=== PATIENT | male | born 1955 | race Two or more races ===

== ENCOUNTER 2019-02-05 21:21 | Inpatient (IN) | payer OTHER ==
[~2019-02-05] VITALS: Ht 152.4 cm; Wt 58.1 kg
[2019-02-05] MEDS ORDERED: HYDROCODONE/APAP 5/325MG 1 EACH TABLET PO PRN (23:00)
[2019-02-05] MEDS ORDERED: ONDANSETRON HCL/PF 4 MG/2 ML VIAL IVP PRN (23:00)
[2019-02-05] MEDS ORDERED: ALBUTEROL FS 2.5 MG/0.5 ML VIAL.NEB NEB PRN (23:00)
[2019-02-05] MEDS ORDERED: Z GUARD REMEDY 2 OZ OINT TP PRN (23:00)
[2019-02-05] MEDS ORDERED: MAGNESIUM HYDROXIDE 30 ML UDC PO PRN (23:00)
[2019-02-05] MEDS ORDERED: ACETAMINOPHEN 325 MG TABLET PO PRN (23:00)
[2019-02-05] MEDS ORDERED: ZOLPIDEM TARTRATE 5 MG TABLET PO PRN (23:00)
[2019-02-05] MEDS ORDERED: IPRATROPIUM NEB FS 0.5 MG/2.5 ML AMPUL.NEB NEB PRN (23:00)
--- NOTE | 2019-02-06 00:10 | NUR ---
MANINDER/RN NOTES 64 YEARS OLD MALE PT ADMITTED TO THE [facility]ER UNIT WITH THE DX OF COPD EXACERBATION, SOB. PATIENT IN NO ACUTE DISTRESS, RESPIRATION EVEN AND UNLABORED , NO SOB NOTED. PATIENT ON O2 @ 3LPM VIA N/C SATURATING 97% AT THIS TIME. PATIENT ALERT AND ORIENTED X4, DENIES ANY PAIN OR DISCOMFORT AT THIS TIME. SKIN ASSESSMENT DONE, PATIENT PLACED ON TELE MONITORING WITH SR 67. SAFETY MAINTAINED, BED AT THE LOWEST POSITION, LOCKED WITH X2 SIDE RAILS UP. CALL LIGHT WITHIN REACH. WILL CONTINUE TO MONITOR PATIENT CONDITION PER PLAN OF CARE.
[2019-02-06 00:25] VITALS: BP 145/78
[2019-02-06] MEDS: methylPREDNISolone SOD SUCC 125 MG/2ML VIAL IV SCH ×4 (02:10→22:03)
[2019-02-06] MEDS: ENOXAPARIN SODIUM 40 MG/0.4 ML DISP.SYRIN SQ SCH ×2 (02:13→21:21)
[2019-02-06 04:00] VITALS: BP 138/68
[2019-02-06 06:14] LABS: HEMATOCRIT 45 % (39-51); LYMPHOCYTES # (AUTO) 0.4 /CMM (0.8-4.8); LYMPHOCYTES % (AUTO) 4.5 % (20.0-44.0); MEAN CORPUSCULAR HGB CONC 34 g/dl (31.0-36.0); MEAN CORPUSCULAR VOLUME 98 fL (80-96); MONOCYTES # (AUTO) 0.1 /CMM (0.1-1.30); NEUTROPHILS # (AUTO) 7.7 /CMM (1.8-8.9); NEUTROPHILS % (AUTO) 94.5 % (43.0-81.0); PLATELET COUNT (AUTO) 129 /CMM (150-450); RED BLOOD CELL COUNT(AUTO) 4.54 MIL/uL (4.5-6.0); WHITE BLOOD COUNT (AUTO) 8.1 K/uL (4.3-11.0)
[2019-02-06 06:34] LABS: CALCIUM, SERUM 8.5 mg/dL (8.5-10.1); CREATININE 0.7 mg/dL (0.6-1.3); MAGNESIUM 1.9 mg/dL (1.8-2.4); POTASSIUM 4.7 mmol/L (3.5-5.1)
--- NOTE | 2019-02-06 06:36 | NUR ---
MANINDER/RN NOTES PATIENT IN NO ACUTE DISTRESS, RESPIRATION EVEN AND UNLABORED , NO SOB NOTED. NO SIGNIFICANT CHANGE IN CONDITION NOTED IN THIS SHIFT, ALL DUE MEDS GIVEN ORDERED. DENIES ANY PAIN OR DISCOMFORT AT THIS TIME. PATIENT ON TELE MONITORING WITH SR 70. SAFETY MAINTAINED, BED AT THE LOWEST POSITION, LOCKED WITH X2 SIDE RAILS UP. CALL LIGHT WITHIN REACH. WILL ENDORSE TO AM SHIFT NURSE FOR MISAEL
--- NOTE | 2019-02-06 07:30 | NUR ---
MANINDER RN AM NOTES PATIENT IN BED, ALERT ORIENTED X 3, ON 3 LPM O2 VIA NASAL CANULA, SLIGHT SOB, NOT IN ANY DISTRESS, RESPIRATION UNLABORED, SINUS TACH HR 108 ON TELE MONITOR, DENIES PAIN OR DISCOMFORT, RT WRIST G 20 IV ACCESS, FLUSHES WELL, SITE CLEAR, CARDIAC DIET, O SKIN ISSUES, AMBULATES, STEADY GAIT. SAFETY MAINTAINED, BED AT THE LOWEST POSITION, LOCKED WITH X2 SIDE RAILS UP. CALL LIGHT WITHIN REACH. WILL CONTINUE TO MONITOR.
[2019-02-06 08:00] VITALS: BP_SYST 137; BP_SYST 148; BP_DIAS 70; BP_DIAS 72
--- NOTE | 2019-02-06 09:30 | NUR ---
MANINDER RN NOTES DUE MEDS GIVEN
[2019-02-06] MEDS ORDERED: LORAZEPAM INJ 2 MG/ML VIAL IV PRN (10:00)
[2019-02-06 10:26] LABS: ALBUMIN 3.4 g/dL (3.4-5.0); BILIRUBIN,DIRECT 0.1 mg/dL (0.0-0.2); BILIRUBIN,TOTAL 0.5 mg/dL (0.2-1.0); TOTAL PROTEIN, SERUM 8.2 g/dL (6.4-8.2)
[2019-02-06] MEDS: IPRATROPIUM NEB FS 0.5 MG/2.5 ML AMPUL.NEB NEB SCH ×3 (11:30→19:47)
[2019-02-06] MEDS: ALBUTEROL FS 2.5 MG/0.5 ML VIAL.NEB NEB SCH ×4 (11:30→23:49)
[2019-02-06] MEDS: CEFTRIAXONE 1 G in IV D5W 50 ML IV SCH (11:48)
[2019-02-06] MEDS: AZITHROMYCIN 500 MG in IV D5W 250 ML IV SCH (11:48)
[2019-02-06 12:00] VITALS: BP 149/74
[2019-02-06 15:51] LABS: ABG BASE EXCESS 1.4 mmol/L; ABG OXYGEN SATURATION 95.4 % (92.0-98.5); ABG PCO2 31.2 mmHg (35.0-45.0); ABG PO2 74.8 mmHg (75.0-100.0); AaDO2 37.6 mmHg; COHb 0.6 % (0.5-1.5); MetHb 0.4 % (0.0-1.5); O2Hb 94.4 % (94.0-97.0); SITE, ABG Right Radial; VENT MODE, BG room air
[2019-02-06 16:00] VITALS: BP 137/72
--- NOTE | 2019-02-06 18:42 | NUR ---
MANINDER RN CLOSING NOTES PATIENT RESTING IN BED, ALERT ORIENTED X 3, ON 3 LPM O2 VIA NASAL CANULA, SLIGHT SOB, NOT IN ANY DISTRESS, RESPIRATION UNLABORED, SINUS TACH HR 100s ON TELE MONITOR, DENIES PAIN OR DISCOMFORT, RT WRIST G 20 IV ACCESS, FLUSHES WELL, SITE CLEAR, CARDIAC DIET, NO SKIN ISSUES, AMBULATES, STEADY GAIT. SAFETY MAINTAINED, BED AT THE LOWEST POSITION, LOCKED WITH X2 SIDE RAILS UP. ALL NEEDS MET AT THIS TIME. CALL LIGHT WITHIN REACH. NO OTHER SIGNIFICANT CHANGE IN CONDITION. WILL ENDORSE TO NEXT SHIFT FOR MISAEL.
--- NOTE | 2019-02-06 19:10 | NUR ---
RN MANINDER NOTE PATIENT IS AOX4, RESTING WITH HOB AT 30 DEGREES, ON TELE SR, ON 3L O2 VIA NC, DENIES ANY CARDIAC OR RESPIRATORY DISTRESS, AMBULATORY, SKIN IS INTACT, RIGHT WRIST #20G, PATENT FLUSHING WELL, SKIN KEPT CLEAN AND DRY, SAFETY MAINTAINED AT ALL TIMES, BED IN LOW, LOCKED POSITION, CALL LIGHT WITHIN REACH, WILL CONTINUE TO MONITOR FOR ANY CHANGES IN CONDITION.
[2019-02-06 20:00] VITALS: BP 141/64
[2019-02-06] MEDS: FAMOTIDINE (20 MG) 20 MG TABLET PO SCH (21:20)
[2019-02-07] VITALS: BP 114/57
[2019-02-07] MEDS: ALBUTEROL FS 2.5 MG/0.5 ML VIAL.NEB NEB SCH ×3 (03:30→11:06)
[2019-02-07 04:00] VITALS: BP 132/71
[2019-02-07 06:08] LABS: BASOPHILS % (AUTO) 0.3 % (0.0-2.0); EOSINOPHILS % (AUTO) 0.9 % (0.0-6.0); HEMATOCRIT 43 % (39-51); HEMOGLOBIN 14.6 g/dL (13.5-17.5); LYMPHOCYTES # (AUTO) 0.3 /CMM (0.8-4.8); LYMPHOCYTES % (AUTO) 2.3 % (20.0-44.0); MEAN CORPUSCULAR HGB CONC 34 g/dl (31.0-36.0); MEAN CORPUSCULAR VOLUME 98 fL (80-96); MONOCYTES # (AUTO) 0.3 /CMM (0.1-1.30); MONOCYTES % (AUTO) 2.6 % (2.0-12.0); NEUTROPHILS # (AUTO) 11.2 /CMM (1.8-8.9); NEUTROPHILS % (AUTO) 93.9 % (43.0-81.0); PLATELET COUNT (AUTO) 139 /CMM (150-450); RED BLOOD CELL COUNT(AUTO) 4.41 MIL/uL (4.5-6.0)
[2019-02-07 06:27] LABS: CALCIUM, SERUM 8.5 mg/dL (8.5-10.1); CREATININE 0.6 mg/dL (0.6-1.3)
--- NOTE | 2019-02-07 07:30 | NUR ---
MANINDER RN AM NOTES PATIENT IN BED, ALERT ORIENTED X 3, ON 3 LPM O2 VIA NASAL CANULA, SLIGHT SOB, NOT IN ANY DISTRESS, RESPIRATION UNLABORED, SINUS RHYTHM HR 66 ON TELE MONITOR, DENIES PAIN OR DISCOMFORT, RT WRIST G 20 IV ACCESS, FLUSHES WELL, SITE CLEAR, CARDIAC DIET, O SKIN ISSUES, AMBULATES, STEADY GAIT. SAFETY MAINTAINED, BED AT THE LOWEST POSITION, LOCKED WITH X2 SIDE RAILS UP. CALL LIGHT WITHIN REACH. WILL CONTINUE TO MONITOR.
[2019-02-07] MEDS: IPRATROPIUM NEB FS 0.5 MG/2.5 ML AMPUL.NEB NEB SCH ×2 (07:36→11:06)
[2019-02-07] MEDS: methylPREDNISolone SOD SUCC 125 MG/2ML VIAL IV SCH (07:56)
[2019-02-07 08:00] VITALS: BP 115/64
[2019-02-07] MEDS: FAMOTIDINE (20 MG) 20 MG TABLET PO SCH (08:45)
--- NOTE | 2019-02-07 09:30 | NUR ---
MANINDER RN NOTES DUE MEDS GIVEN
--- NOTE | 2019-02-07 09:51 | NUR ---
MS RN NOTES DC TELE PER DR. MELGOZA
[2019-02-07] MEDS: CEFTRIAXONE 1 G in IV D5W 50 ML IV SCH (10:22)
--- NOTE | 2019-02-07 10:38 | NUR ---
MS RN NOTES MEDICAL RECORDS FOLLOWED UP AT [facility].WAITING FOR THEM TO FAX EVERYTHING.
[2019-02-07 11:06] LABS: ALBUMIN 3.1 g/dL (3.4-5.0); BILIRUBIN,DIRECT 0.1 mg/dL (0.0-0.2); BILIRUBIN,TOTAL 0.5 mg/dL (0.2-1.0); TOTAL PROTEIN, SERUM 7.5 g/dL (6.4-8.2)
[2019-02-07] MEDS: AZITHROMYCIN 500 MG in IV D5W 250 ML IV SCH (11:07)
--- NOTE | 2019-02-07 11:15 | NUR ---
Social service consult requested by GRACE Rivera for homelessness. Pt. is a 64 year old male who was admitted to [facility] for COPD and Hypoxia. KUSHAL met with pt. bedside. Pt. is alert and oriented x 4. Pt. was pleasant and cooperative with SW during the assessment. Pt. states he has been homeless for years and years. [place]. [place] SW offered pt. [facility] placement, however pt. declined stating, " I don't do shelters." KUSHAL asked pt. if he had heard of [email or web address] and he should link up with them for services. Pt. stated he is very familiar with them but cannot go back there because he got kicked out of the facility three times for altercations. Pt. states he drinks a pint of vodka daily and has been to several alcohol rehab programs. Pt. declined referral to a rehab facility at this time. Pt. denies any drug use. Pt. smokes marijuana a few times per week. Pt. receives approximately $1018 per month in SSDI. KUSHAL gave pt. contact information to [employer] and informed him to give her a call since she charges $650/month in rent which the pt. stated he can afford. Pt. was given the following homeless resources: [facility] located at [address] ; [facility] [place], [address] [place] [address], [place] ; [facility] [place], [address] ; [facility] Homeless Resource Directory which includes food stamps, transitional housing, showers and hot meals etc; Mental Health clinics such as [facility] ; [facility] ; Health clinics;[facility] and Alcohol treatment centers such as [facility], ; [facility] Substance Abuse Hotline and [facility] . Pt. accepted the resources. Homeless waiver form was placed in the chart for pt. to sign upon discharge. KUSHAL updated CRN Guillermina with pt' s discharge plan.
--- NOTE | 2019-02-07 12:18 | NUR ---
MS HUEY NOTES PATIENT FOUND INSIDE ROOM, YANKED OUT HIS IV AND BLEEDING, ATTENDED TO HIS IV SITE, CLEANED, PRESSURED APPLIED AND DRESSING IN PLACE. PATIENT VERY UPSET FOR UNKNOWN REASON, CUZZING AND PACING AROUND. THIS SN TRIED TO CALM HIM DOWN BUT INSTEAD, HE STARTED TO GET ALL HIS BELONGINGS AND STARTED TO DRESS UP AND STATED TO PREPARE THE PAPER FOR HIM TO SIGN BECAUSE HE IS LEAVING. EXPLAINED TO HIM THE RISK OF LEAVING AGAINST MEDICAL ADVISE BUT STILL INSISTED. REFUSED TO HAVE BELONGINGS CHECKED. SIGNED AMA PAPERS AND ACCOMPANIED BY [employer] MACHINE BILLER TO LOBBY. BOTH NURSING ASSESSMENT EXPERT AND AMANDA GAYTAN COUPLES THERAPIST NOTIFIED. Addendum: 02/07/19 at 1350 by GENNY MARQUEZ RN ADDENDUM PATIENT REFUSED TO WAIT FOR OTHER DISCHARGE PAPERS FOR HIM.
--- NOTE | 2019-02-07 14:03 | NUR ---
RN NOTES PATIENT WENT AMA. INCIDENT REPORT CREATED AND ON FILE Unique Id: [id number]
== END 2019-02-07 12:30 | disposition left against medical advice (07) | DRG 140 ==
LOC: TELE-TD 02-06 00:07 → MEDSG1 02-07 10:16
PROVIDERS: ADMIT Nurse Practitioner Acute Care; ATTEND Nurse Practitioner Acute Care
DX: J44.1 Chronic obstructive pulmonary disease with (acute) exacerbation (principal); J15.9 Unspecified bacterial pneumonia; D69.59 Other secondary thrombocytopenia; E87.1 Hypo-osmolality and hyponatremia; J44.0 Chronic obstructive pulmonary disease with (acute) lower respiratory infection; F10.239 Alcohol dependence with withdrawal, unspecified; F17.210 Nicotine dependence, cigarettes, uncomplicated; M06.9 Rheumatoid arthritis, unspecified; Z59.0 Homelessness; Y90.9 Presence of alcohol in blood, level not specified; D72.829 Elevated white blood cell count, unspecified; R59.0 Localized enlarged lymph nodes
CPT/HCPCS: 36415; 36600; 71045-TC; 71046; 76700-TC; 80048-TC; 80061-TC; 80076-TC; 83735-TC; 84100-TC; 85025-TC; 87081-TC; 94799-TC; G0378; J0456; J0696; J1650; J2930; J7060

== ENCOUNTER 2021-12-01 18:32 | Emergency (ER) | payer MEDICARE, OTHER ==
[~2021-12-01] VITALS: Ht 157.5 cm; Wt 59.0 kg
--- NOTE | 2021-12-01 18:32 | NUR ---
[id number], L SIDED CHEST PAIN (PRESSURE-LIKE) x 2 DAYS,PAIN ON DEEP INSPIRATION, WITH PRODUCTIVE COUGH, FOUND DRINKING VODKA, CORRECTION EMPTY. Hx OF ASTHMA, ON ALBUTEROL INHALER. TO ER BED 15, HOOKED TO AIRPLANE FLIGHT ATTENDANT SUPERVISOR, NOTED SINUS TACHYCARDIA AT 106BPM, NOTED 86% ON RA, PLACED ON 2LPM OF O2 IN NASAL CANNULA. CHANGED TO HOSP GOWN, WARM BLANKET PROVIDED. DR CACERES AT BEDSIDE
[2021-12-01] MEDS ORDERED: ASPIRIN 81 MG TAB.CHEW ONE (18:45)
--- NOTE | 2021-12-01 18:55 | NUR ---
RAPID COVID SWAB DONE AND SENT TO LAB
[2021-12-01] MEDS ORDERED: IPRATROPIUM NEB FS 0.5 MG/2.5 ML AMPUL.NEB NEB ONE (19:00)
[2021-12-01] MEDS ORDERED: ALBUTEROL FS 2.5 MG/3 ML VIAL.NEB CONTNEB ONE (19:00)
[2021-12-01] MEDS ORDERED: ASPIRIN 81 MG TAB.CHEW PO ONE (19:00)
--- NOTE | 2021-12-01 19:08 | NUR ---
CALLED RT FOR BREATHING TX
--- NOTE | 2021-12-01 19:11 | NUR ---
URINE SAMPLE COLLECTED AND SENT TO LAB
[2021-12-01 19:16] LABS: CALCIUM, SERUM 7.5 mg/dL (8.5-10.1); CARBON DIOXIDE 27 mmol/L (21-32); CHLORIDE 106 mmol/L (98-107); CREATININE 0.7 mg/dL (0.6-1.3); GLUCOSE 95 mg/dL (74-106); POTASSIUM 3.4 mmol/L (3.5-5.1); SODIUM SERUM 141 mmol/L (136-145); UREA NITROGEN, BLOOD 11 mg/dL (7-18)
--- NOTE | 2021-12-01 19:18 | NUR ---
RT at pt's bedside for breathing tx
[2021-12-01] MEDS ORDERED: ALBUTEROL FS 2.5 MG/3 ML VIAL.NEB ONE (19:19)
[2021-12-01] MEDS ORDERED: IPRATROPIUM NEB FS 0.5 MG/2.5 ML AMPUL.NEB ONE (19:19)
[2021-12-01 20:03] LABS: BASOPHILS # (AUTO) 0.2 K/uL (0.0-0.2); BASOPHILS % (AUTO) 2.4 % (0.0-2.0); HEMATOCRIT 25 % (39-51); HEMOGLOBIN 7.8 g/dL (13.5-17.5); LYMPHOCYTES # (AUTO) 1.3 K/uL (0.8-4.8); LYMPHOCYTES % (AUTO) 17.1 % (20.0-44.0); MEAN CORPUSCULAR HGB CONC 31 g/dl (31.0-36.0); MEAN CORPUSCULAR VOLUME 77 fL (80-96); MONOCYTES # (AUTO) 0.8 K/uL (0.1-1.30); MONOCYTES % (AUTO) 11.3 % (2.0-12.0); NEUTROPHILS % (AUTO) 67.2 % (43.0-81.0); PLATELET COUNT (AUTO) 655 K/uL (150-450); RED BLOOD CELL COUNT(AUTO) 3.27 MIL/uL (4.5-6.0); WHITE BLOOD COUNT (AUTO) 7.4 K/uL (4.3-11.0)
[2021-12-01 21:16] LABS: BAND % (MANUAL) 1 % (0.0-5.0); EOSINOPHILS % (MANUAL) 6 % (0-4); LYMPHOCYTES % (MANUAL) 17 % (16-48); MONOCYTES % (MANUAL) 6 % (0-11.0); NEUTROPHILS % (MANUAL) 70 (42-76)
[2021-12-02 04:10] VITALS: BP 109/66
--- NOTE | 2021-12-02 05:56 | NUR ---
Patient discharged to home in stable condition. Written and verbal after care instructions given. Patient verbalizes understanding of instruction. IV removed. Catheter intact and site benign. Pressure and 4x4 applied to site. No bleeding noted.
== END 2021-12-02 05:58 | disposition home or self-care (01) ==
LOC: ER 18:34
DX: R07.81 Pleurodynia (principal); D64.9 Anemia, unspecified; F10.229 Alcohol dependence with intoxication, unspecified; Y90.8 Blood alcohol level of 240 mg/100 ml or more; Z86.19 Personal history of other infectious and parasitic diseases; R05.9 Cough, unspecified; Z20.822 Contact with and (suspected) exposure to COVID-19; J45.909 Unspecified asthma, uncomplicated; I10 Essential (primary) hypertension; Z59.00 Homelessness unspecified
CPT/HCPCS: 36415; 71045-TC; 80048-TC; 84484-TC; 85025-TC; C9803; G0480